=== PATIENT | female | born 2000 | race African-American/Black ===

== ENCOUNTER 2023-08-16 09:32 | Emergency (ER) | payer MEDICAID, OTHER ==
[2023-08-16] MEDS ORDERED: IBUP-1022 PO (10:41)
[2023-08-16] MEDS: LIDOCAINE VISCOUS 2% SOLN 15ML UDC PO ONE (10:50)
[2023-08-16] MEDS: ACETAMINOPHEN 325 MG TAB PO ONE (10:53)
[2023-08-16 11:09] VITALS: BP 122/68; TEMP 98.1; O2SAT 100
== END 2023-08-16 11:12 | disposition home or self-care (01) ==
LOC: M ED 09:32
DX: J02.9 Acute pharyngitis, unspecified (principal); Z79.1 Long term (current) use of non-steroidal anti-inflammatories (NSAID)